=== PATIENT | female | born 1975 | race Caucasian/White ===

== ENCOUNTER 2025-01-04 15:44 | Observation (INO) | payer MEDICARE, MEDICAID, SELFPAY ==
[2025-01-04 15:51] VITALS: BP 132/81; PULSE 93; RESP 22; TEMP 36.5; O2SAT 97; BMI 51.3
--- NOTE | 2025-01-04 16:06 | CT_ITS ---
WS: [id number] CT HEAD NONCONTRAST HISTORY: Symptoms of acute stroke TECHNIQUE: Contiguous axial imaging performed through the brain. Bone and soft tissue windows. Sagittal and coronal reformats reviewed. All CT scans at [facility] use at least one of these dose optimization techniques: automated exposure control; mA and/or kV adjustment per patient size (includes targeted exams where dose is matched to clinical indication); or iterative reconstruction. DLP: 1115.17 mGy COMPARISON: 08/30/2014 No acute intracranial hemorrhage, midline shift or mass effect. No significant atrophy. Subtle areas of decreased attenuation in the occipital lobes bilaterally. No large territory infarct. Ventricles: Normal size with no hydrocephalus. No inferior displacement of the cerebellar tonsils. Paranasal sinuses: As visualized are clear. Mastoid air cells: Well pneumatized. Calvarium and scalp: Skull is intact with no soft tissue edema or swelling. CT/CT head thrombolytic [id number] IMPRESSION: 1. No acute intracranial hemorrhage or edema. 2. Subtle areas of decreased attenuation in the occipital lobes. This may be a rtifact related to patient motion. Less likely early ischemic changes. Patient' s blood pressure is normal therefore not likely PRES. Notified Shirley Bishop MD at 01/04/2025 4:23 PM.
--- NOTE | 2025-01-04 16:18 | PC.NURSE ---
Patient taken to ER Room and Dr Hdez Consulted. Stroke alert called and assisted TRAIN CONTROL ELECTRONIC TECHNICIAN to imaging.
--- NOTE | 2025-01-04 16:21 | ECG_ITS ---
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 Measurements Intervals [place] Rate: 86 P: 27 TX: 165 QRS: -26 QRSD: 145 T: 0 QT: 396 QTc: 475 Interpretive Statements SINUS RHYTHM BORDERLINE LEFT AXIS DEVIATION [QRS AXIS < -20] RIGHT BUNDLE BRANCH BLOCK [120+ ms QRS DURATION, UPRIGHT V1, 40+ ms S IN I/aVL/V4/V5/V6] MINIMAL VOLTAGE CRITERIA FOR LVH, CONSIDER NORMAL VARIANT [MEETS CRITERIA IN ONE OF: R(aVL), S(V1), R(V5), R(V5/V6)+S(V1)] No previous ECG available for comparison Electronically Signed On 01-08-2025 18:11:04 DOCUMENT CLERK by Dexter Navarrete M.D. [email or web address] [id number]
[2025-01-04 16:28] LABS: Basophils % 0.3 %; Eosinophils # 0.2 10^3/uL (0.0-0.8); Eosinophils % 1.9 %; Hematocrit 38.5 % (36-47); Lymphocytes # 1.6 10^3/uL (0.8-4.8); Lymphocytes % 20.4 %; Mean Corpuscular HGB Conc 34.8 g/dL (30-55); Mean Corpuscular Hemoglobin 30.7 pg (27-33); Mean Corpuscular Volume 88.3 fl (85-98); Monocytes # 0.6 10^3/uL (0.2-0.9); Monocytes % 7.4 %; Neutrophils # 5.56 10^3/uL (1.8-7.7); Neutrophils % 69.6 %; Nucleated Red Blood Cells % 0 %; Platelet Count 259 10^3/cmm (157-399); Red Blood Count 4.36 10^6/uL (3.85-5.65); White Blood Count 7.98 10^3/uL (3.29-11.43)
--- NOTE | 2025-01-04 16:31 | W.ED.WEAKNES ---
HPI - Weakness General: Chief complaint: Weakness Stated complaint: head pain, not feeling irght, right sided pain? Time Seen by Provider: 01/04/25 16:04 Source: patient Mode of arrival: ambulatory Limitations: no limitations History of Present Illness: 49-year-old female who is here with multiple complaints. Patient states that she was in an argument with her boyfriend 3 to 4 hours states she got very upset started having headache states she started having right sided weakness and slurred speech. She does have a history of bipolar schizophrenia states she had a positive meth test 3 weeks ago she states she also is 4 months . She has had a history of stroke in the past. Patient has pressured speech and is extremely anxious here she is moving all extremities has no slurred speech. Associated symptoms: Reports headache(s); Denies chest pain, chills, fever(s), nausea or vomiting Review of Systems Const: Denies: fever(s) or chills Eyes: Denies: blurry vision or eye discomfort ENMT: Denies: throat pain or dental pain Card: Denies: chest pain Resp: Denies: dyspnea GI: Denies: abdominal pain, nausea, vomiting or diarrhea Musc: Denies: neck pain or back pain Skin/Breast: Denies: rash Neuro: Reports: headache(s) Psych: Reports: anxiety Physical Exam Const: COMMON NORMALS: patient oriented x3 GENERAL APPEARANCE: anxious HENMT: COMMON NORMALS: normocephalic and atraumatic HEAD & SCALP: normocephalic and atraumatic Eye: COMMON NORMALS: Equal, round and reactive pupils present and EOMs intact bilaterally PUPIL: Yes Equal, round and reactive pupils present Neck/C-Spine: COMMON NORMALS: full ROM and supple Chest: COMMONS NORMALS: normal inspection of the chest Resp: COMMON NORMALS: normal respiratory effort, No retractions, No use of accessory muscles and clear to auscultation bilaterally AUSCULTATION: clear to auscultation bilaterally Cardio: COMMON NORMALS: regular rate, regular rhythm and No murmurs present (Cardio) RATE: regular rate RHYTHM: regular rhythm GI: COMMON NORMALS: Normal to inspection, nondistended, normoactive bowel sounds present, Soft to palpation, non-tender and no masses PALPATION: Yes Soft to palpation Extremity: COMMON NORMALS: normal to inspection and full ROM Neuro: COMMON NORMALS: patient oriented x3, moves all extremities and no focal motor deficits SPEECH: speech normal MOTOR EXAM: 5/5 motor strength present throughout Psych: COMMON NORMALS: mental status grossly normal, Normal thought process present and cooperative THOUGHT PROCESS: Normal thought process present Skin: COMMON NORMALS: no rashes or lesions noted and no wounds GENERAL SKIN EXAM: no rashes or lesions noted Course Vital Signs: Vital signs: Vital Signs Temperature 97.7 F 01/04/25 15:51 Pulse Rate 92 01/04/25 16:46 Respiratory Rate 22 H 01/04/25 15:51 Blood Pressure 141/94 01/04/25 16:46 Pulse Oximetry 93 01/04/25 16:46 Oxygen Delivery Me thod Room Air 01/04/25 16:46 MDM - Weakness Medical Decision Making Patient presents here concerns of possible stroke. I agree NIH 0 she had some intermittent slurred speech but does have tardive dyskinesia could possibly a TIA or an anxiety reaction CT and some nonspecific findings could be motion artifact neurologist recommended admission for MRI will admit for observation. Patient is not a TNKase candidate as she has a low NIH and is unsure exactly when this it started Medical Records I reviewed the patient's medical records. Lab Data I reviewed the patient's lab results. 01/04/25 13:20 01/04/25 13:[address] 01/04/25 16:06 IMPRESSION: 1. No acute intracranial hemorrhage or edema. 2. Subtle areas of decreased attenuation in the occipital lobes. This may be artifact related to patient motion. Less likely early ischemic changes. Patient's blood pressure is normal therefore not likely PRES. Notified Shirley Bishop MD at 01/04/2025 4:23 PM. Laboratory Results WBC 7.98 10^3/uL (3.29-11.43) 01/04/25 13:20 RBC 4.36 10^6/uL (3.85-5.65) 01/04/25 13:20 Hgb 13.40 g/dL (11.27-16.99) 01/04/25 13:20 Hct 38.5 % (36-47) 01/04/25 13:20 MCV 88.3 fl (85-98) 01/04/25 13:20 MCH 30.7 pg (27-33) 01/04/25 13:20 MCHC 34.8 g/dL (30-55) 01/04/25 13:20 RDW 13.0 % (12.1-15.1) 01/04/25 13:20 Plt Count 259 10^3/cmm (157-399) 01/04/25 13:20 MPV 10.0 fL (7.4-10.4) 01/04/25 13:20 Neut % (Auto) 69.6 % 01/04/25 13:20 Lymph % (Auto) 20.4 % 01/04/25 13:20 [place] % (Auto) 7.4 % 01/04/25 13:20 Eos % (Auto) 1.9 % 01/04/25 13:20 Baso % (Auto) 0.3 % 01/04/25 13:20 Neut # (Auto) 5.56 10^3/uL (1.8-7.7) 01/04/25 13:20 Lymph # (Auto) 1.6 10^3/uL (0.8-4.8) 01/04/25 13:20 [place] # (Auto) 0.6 10^3/uL (0.2-0.9) 01/04/25 13:20 Eos # (Auto) 0.2 10^3/uL (0.0-0.8) 01/04/25 13:20 Baso # (Auto) 0.0 10^3/uL (0.0-0.1) 01/04/25 13:20 Nucleated RBC % (auto) 0 % 01/04/25 13:20 Nucleated RBCs # 0.0 /100WBC 01/04/25 13:20 PT 12.20 SECONDS (12.1-14.9) 01/04/25 13:20 INR 0.85 (0.8-1.2) 01/04/25 13:20 APTT 24.1 SECONDS (23.9-36.7) 01/04/25 13:20 Sodium 136 mmol/L (136-145) 01/04/25 13:20 Potassium 3.8 mmol/L (3.5-5.1) 01/04/25 13:20 Chloride 100 mmol/L (98-107) 01/04/25 13:20 Carbon Dioxide 25 mmol/L (22-29) 01/04/25 13:20 Anion Gap 14.8 (5-19) 01/04/25 13:20 BUN 23 mg/dL (6-20) H 01/04/25 13:20 Creatinine 0.7 mg/dL (0.5-0.9) 01/04/25 13:20 GFR Calculation 89.7 mL/min (90-130) L 01/04/25 13:20 Glucose 312 mg/dL (65-115) H 01/04/25 13:20 Calculated Osmolality 298 mOsm/kg (285-295) H 01/04/25 13:20 Calcium 9.4 mg/dL (8.5-10.5) 01/04/25 13:20 Total Bilirubin 0.4 mg/dL (0.15-1.2) 01/04/25 13:20 AST 9 U/L (0-32) 01/04/25 13:20 ALT 12 U/L (0-33) 01/04/25 13:20 Alkaline Phosphatase 97 U/L (35-105) 01/04/25 13:20 Total Protein 6.8 g/dL (6.6-8.7) 01/04/25 13:20 Albumin 3.7 g/dL (3.5-5.2) 01/04/25 13:20 Globulin 3.1 g/dL (1.3-4.6) 01/04/25 13:20 Ser , Semi-Qnt < 1.00 mIU/mL 01/04/25 13:20 All radiology interpretation(s) finalized by discharge EKG Data EKG 1: I personally reviewed and interpreted this EKG as follows: EKG interpretation date: 01/04/25 EKG interpretation time: 16:21 Interpretation: nsr hr [address] elevation qrs 145 qtc 439 Discharge Plan Discharge Patient Disposition: Admitted As Inpatient Clinical Impression: CVA (cerebral vascular accident) Condition: Stable Prescriptions: No Action benztropine 0.5 mg tablet 0.5 mg PO BID carvedilol 12.5 mg tablet 12.5 mg PO BID clarithromycin 250 mg tablet See Rx Instructions .ROUTE .COMPLEX Rx Instructions: TAKE TWO TABLETS BY MOUTH TWICE A DAY IN THE MORNING & BEDTIME FOR 10 DAYS tizanidine 4 mg tablet 4 mg PO TID PRN (Reason: Muscle Spasm) levetiracetam 500 mg tablet 500 mg PO BID gabapentin 400 mg capsule 400 mg PO TID hydroxyzine pamoate 50 mg capsule 50 mg PO Q8H PRN (Reason: Anxiety) quetiapine 100 mg tablet 100 mg PO BEDTIME lamotrigine 25 mg tablet 25 mg PO QAM buspirone 10 mg tablet 10 mg PO BID omeprazole 20 mg capsule,delayed release(DR/EC) 40 mg PO QAM metformin 500 mg tablet extended release 24 hr 500 mg PO BID prazosin 2 mg capsule 2 mg PO BEDTIME insulin lispro [Humalog KwikPen Insulin] 100 unit/mL insulin pen See Rx Instructions .ROUTE .COMPLEX Rx Instructions: INJECT 28 UNITS UNDER THE SKIN THREE TIMES A DAY, BEFORE EACH MEAL duloxetine 30 mg capsule,delayed release(DR/EC) 60 mg PO BEDTIME insulin glargine [Lantus Solostar U-100 Insulin] 100 unit/mL (3 mL) insulin pen 40 unit SUBCUT QAM oxycodone 10 mg tablet 10 mg PO Q8H PRN (Reason: Pain) buprenorphine-naloxone 8-2 mg film 1 film buccal BID insulin glargine-yfgn 100 unit/mL (3 mL) insulin pen 40 unit SUBCUT BEDTIME meloxicam 7.5 mg tablet 7.5 mg PO QAM Print Language: Mohawk Coding Level of Care Code ED Registered Massage Therapist for Chg Fwd Related Data Home Medications ?Medication ?Instructions ?Recorded ?Confirmed benztropine 0.5 mg tablet 0.5 mg PO BID 01/04/25 01/04/25 buprenorphine 8 mg-naloxone 2 mg 1 film buccal BID 01/04/25 01/04/25 sublingual film buspirone 10 mg tablet 10 mg PO BID 01/04/25 01/04/25 carvedilol 12.5 mg tablet 12.5 mg PO BID 01/04/25 01/04/25 clarithromycin 250 mg tablet See Rx Instructions .Route .COMPLEX 01/04/25 01/04/25 duloxetine 30 mg capsule,delayed 60 mg PO BEDTIME 01/04/25 01/04/25 release gabapentin 400 mg capsule 400 mg PO TID 01/04/25 01/04/25 hydroxyzine pamoate 50 mg capsule 50 mg PO Q8H PRN Anxiety 01/04/25 01/04/25 insulin glargine 100 unit/mL (3 40 unit SUBCUT QAM 01/04/25 01/04/25 mL) subcutaneous pen (Lantus Solostar U-100 Insulin) insulin glargine-yfgn 100 unit/mL 40 unit SUBCUT BEDTIME 01/04/25 01/04/25 (3 mL) subcutaneous pen insulin lispro 100 unit/mL See Rx Instructions .Route .COMPLEX 01/04/25 01/04/25 subcutaneous pen (Humalog KwikPen (U-100) Insulin) lamotrigine 25 mg tablet 25 mg PO QAM 01/04/25 01/04/25 levetiracetam 500 mg tablet 500 mg PO BID 01/04/25 01/04/25 meloxicam 7.5 mg tablet 7.5 mg PO QAM 01/04/25 01/04/25 metformin 500 mg tablet,extended 500 mg PO BID 01/04/25 01/04/25 release 24 hr omeprazole 20 mg capsule,delayed 40 mg PO QAM 01/04/25 01/04/25 release oxycodone 10 mg tablet 10 mg PO Q8H PRN Pain 01/04/25 01/04/25 prazosin 2 mg capsule 2 mg PO BEDTIME 01/04/25 01/04/25 quetiapine 100 mg tablet 100 mg PO BEDTIME 01/04/25 01/04/25 tizanidine 4 mg tablet 4 mg PO TID PRN Muscle Spasm 01/04/25 01/04/25 Allergies Allergy/AdvReac Type Severity Reaction Status Date / Time acetaminophen (From Tylenol) Allergy Unknown Verified 01/04/25 16:01 adhesive tape Allergy Unknown Verified 01/04/25 16:01 ceftriaxone (From Rocephin) Allergy Unknown Verified 01/04/25 16:01 codeine Allergy Unknown Verified 01/04/25 16:01 ketorolac (From Toradol) Allergy Unknown Verified 01/04/25 16:01 Sulfa (Sulfonamide Allergy Unknown Verified 01/04/25 16:01 Antibiotics) sulfamethoxazole (From Allergy Unknown Verified 01/04/25 16:01 Bactrim) trimethoprim (From Bactrim) Allergy Unknown Verified 01/04/25 16:01 NIH stroke score NIHSS Level Of Consciousness - 1a: 0 Level Of Consciousness Questions - 1b: Both Correct Level Of Consciousness Commands - 1c: Both Correct Best Gaze - 2: Normal Visual Sidhu - 3: No Visual Loss Facial Palsy - 4: Normal Motor Arm Right - 5: No Drift Motor Arm Left - 5: No Drift Motor Leg Right - 6: No Drift Motor Leg Left - 6: No Drift Limb Ataxia - 7: Absent Sensory - 8: Normal Best Language - 9: No Aphasia Dysarthia - 10: Normal Extinction And Inattention - 11: 0 Score Total Score: 0
--- NOTE | 2025-01-04 16:37 | P.CONIM_ITS ---
Providers/Reason For Consult 2 Consulting Physician/Specialty*: Salvatore Mcgraw MD neurology and epilepsy Reason for Consult*: Acute care/code stroke emergency department room #1 History of Present Illness History of Present Illness Johanny Rincon is a 49 year old female with a history of methamphetamine use. Patient reports she stopped approximately 2 or 3 years ago but had a positive meth screen 3 weeks prior to this emergency room evaluation. The patient also has a history of psychiatric disorders manifested as bipolar disorder and schizophrenia and treated with quetiapine and reported history of seizures treated with Keppra. The patient stated that she is currently 4 months . The patient stated that she is followed at a [facility] school special education [facility] facility. The patient stated that she was having an argument with her boyfriend approximately 3 or 4 hours prior to the close stroke being initiated at 4:07 PM on 01/04/2025. The patient stated that she and suddenly had right-sided pain involving her face arm and leg and headaches associated with slurred speech. Upon evaluation in the emergency department the patient was anxious and was moving all extremities with no obvious facial weakness or extremity weakness and her speech appeared to be baseline for her. Patient does have some tardive dyskinesia involving her mouth and tongue's and arm. The patient is on neuroleptics. NIH score = 0 Glucose Accu-Chek [address] 01/04/2025 Impression: 1. No acute intracranial hemorrhage or edema. 2. Subtle areas of decreased attenuation in the occipital lobes. This may be artifact related to patient motion. Less likely early ischemic changes. Patient's blood pressure is normal therefore not likely PRES. Drug allergies: Tylenol, adhesive tape, Rocephin, codeine, Toradol, sulfonamide antibiotics, Bactrim type reactions unknown Current medications: Seroquel Cymbalta Keppra 500 mg p.o. twice daily Buprenorphine Note: (The patient reports she is on other medications not listed) Past medical history: Schizophrenia Bipolar disorder Obesity Methamphetamine use 4 months gestational (patient reports being high risk ) Type 2 diabetes mellitus History of seizure disorder History of miscarriage Habits: The patient reports a history of marijuana use and methamphetamine use but stated that she quit using methamphetamines 2 to 3 years ago although drug screen approximately 3 weeks prior to this emergency room visit was reported to be positive for methamphetamine. Last menstrual period: The patient reports she is 4 months and followed by a high school special education teacher/GYN facility. She reports history of a miscarriage Family history: Remarkable for brain cancer, stomach cancer, heart disease, bipolar disorder, diabetes and hypertension Review of Systems 2 General: Reports: 10 or more systems reviewed and unremarkable except in HPI and below Medications/Allergies Allergies Allergy/AdvReac Type Severity Reaction Status Date / Time acetaminophen (From Tylenol) Allergy Unknown Verified 01/04/25 16:01 adhesive tape Allergy Unknown Verified 01/04/25 16:01 ceftriaxone (From Rocephin) Allergy Unknown Verified 01/04/25 16:01 codeine Allergy Unknown Verified 01/04/25 16:01 ketorolac (From Toradol) Allergy Unknown Verified 01/04/25 16:01 Sulfa (Sulfonamide Allergy Unknown Verified 01/04/25 16:01 Antibiotics) sulfamethoxazole (From Allergy Unknown Verified 01/04/25 16:01 Bactrim) trimethoprim (From Bactrim) Allergy Unknown Verified 01/04/25 16:01 Vitals/I&O/Wt Last Vital Signs Temp 97.7 F 01/04/25 15:51 Pulse 93 01/04/25 15:51 Resp 22 H 01/04/25 15:51 BP 132/81 01/04/25 15:51 Pulse Ox 97 01/04/25 15:51 O2 Del Method Room Air 01/04/25 15:51 Weight last 48 hrs Weight 328 lb Physical Exam 2 Narrative: NIH score = 0 Glucose Accu-Chek [address] 01/04/2025 Impression: 1. No acute intracranial hemorrhage or edema. 2. Subtle areas of decreased attenuatio n in the occipital lobes. This may be artifact related to patient motion. Less likely early ischemic changes. Patient's blood pressure is normal therefore not likely PRES. The patient is alert she is oriented to person place and situation. Patient follows commands. Speech is clear the patient does display some tar dive dyskinesia involving her face and mouth and upper extremities. This appears to be baseline for the patient. Pupils 4 mm round reactive to light and accommodation. Extraocular movements intact. Visual weinstein full via confrontation. Motor testing 5/5 bilaterally. Deep tendon reflex revealed plantar responses bilaterally. Sensory examination intact to touch. There was no extinction on double sensory stimulation. Throat clear. Lungs clear. Heart regular rhythm and rate. Extremities were negative for cyanosis. Data 01/04/25 13:20 01/04/25 13:20 A&P Assessment and plan (1) Pain: Impression: 1. Reports of acute onset of right sided pain involving her face arm and leg associated with headache after having an argument with her boyfriend which occurred approximately 3 to 4 hours prior to presenting to the [facility] emergency department. NIH score = 0. Therefore the patient was not a candidate for thrombolytics and no intravenous thrombolytics were administered. 2. Patient reports being 4 months . According to the patient she is followed at a high school special education teacher/GYN facility 3. Abnormal noncontrast head CT 01/04/2025 secondary to Subtle areas of decreased attenuation in the occipital lobes. This may be artifact related to patient motion. Less likely early ischemic changes. Patient's blood pressure is normal therefore not likely PRES. 4. History of methamphetamine use with reports of positive drug screen for methamphetamines 3 weeks prior to this emergency room evaluation 5. History of schizophrenia 6. History of bipolar disorder 7. History of seizure disorder Plan: 1. Recommend obtaining noncontrast head MRI to further assess the findings reported on the noncontrast head CT performed on 01/04/2025 to assess for PRESS as well as acute stroke 2. Agree with obtaining serum and or urine test and serum and or urine drug screen 3. Have patient follow-up with [facility] if patient is indeed 4. Outpatient follow-up with the physician addressing her schizophrenia and bipolar disorder 5. Recommend obtaining trough Keppra level and have patient follow-up with the physician addressing her seizure disorder and Keppra dosing 6. Seizure precautions per state law 7. If noncontrast head MRI does reveal acute stroke follow NIH stroke protocol regarding whether or not patient should be started on a cholesterol-lowering agent and antiplatelet therapy. Speak with [facility] to determine if patient can be on cholesterol-lowering agents and/or antiplatelet therapy during (2) Head ache: PDMP PDMP Reviewed: Not Reviewed Consult Attestations 2 Medical Necessity Statement: The patient was evaluated by neurology for acute care/code stroke manifested as complaints of headaches and right sided pain. Coding Level of Care Code 33176 Diagnoses Pain R52 Head ache R51.9
[2025-01-04 16:46] VITALS: BP 141/94; PULSE 92; O2SAT 93
[2025-01-04] MEDS: metoclopramide 5 mg/mL SDV 2 mL 10 MG IVP (16:46)
[2025-01-04] MEDS: diphenhydrAMINE 50 mg/mL SDV 1mL IVP (16:46)
[2025-01-04 16:47] LABS: INR 0.85 (0.8-1.2)
[2025-01-04 16:48] LABS: Partial Thromboplastin Time 24.1 SECONDS (23.9-36.7)
[2025-01-04 16:51] LABS: HCG Quantitative < 1.00 mIU/mL
[2025-01-04 17:06] LABS: Alanine Aminotransferase 12 U/L (0-33); Albumin Level 3.7 g/dL (3.5-5.2); Alkaline Phosphatase 97 U/L (35-105); Anion Gap 14.8 (5-19); Aspartate Amino Transferase 9 U/L (0-32); Blood Urea Nitrogen 23 mg/dL (6-20); Calcium 9.4 mg/dL (8.5-10.5); Carbon Dioxide 25 mmol/L (22-29); Chloride 100 mmol/L (98-107); Creatinine Clr Calc Pharmacy 151.3105; Globulin 3.1 g/dL (1.3-4.6); Glomerular Filtration Rate 89.7 mL/min (90-130); Glucose 312 mg/dL (65-115); Osmolality Calculated 298 mOsm/kg (285-295); Potassium 3.8 mmol/L (3.5-5.1); Sodium 136 mmol/L (136-145); Total Bilirubin 0.4 mg/dL (0.15-1.2); Total Protein 6.8 g/dL (6.6-8.7)
--- NOTE | 2025-01-04 17:12 | XRR_ITS ---
PROCEDURE INFORMATION: Exam: XR Chest Exam date and time: 01/04/2025 5:14 PM Age: 49 years old Clinical indication: Other: Weakness TECHNIQUE: Imaging protocol: Radiologic exam of the chest. Views: 1 view. COMPARISON: No relevant prior studies available. FINDINGS: Tubes, catheters and devices: None. Lungs: Lung volumes are decreased. Mild bilateral perihilar and basilar interstitial lung opacities, suggesting pulmonary edema versus infiltrates. No consolidation. The bilateral lung apices appear clear. Pleural spaces: No pleural effusion. No pneumothorax. Heart/Mediastinum: Cardiac silhouette appears hbnz-nv-bkmrdzveyk enlarged. Bones/joints: Generalized bony degenerative changes. Soft tissues: This study is limited by patient's body habitus. XR/XR chest 1V portable [id number] IMPRESSION: 1. Arrd-xv-afqshvapqx enlarged cardiac silhouette. 2. Mild interstitial pulmonary edema versus infiltrates.
[2025-01-04] MEDS: aspirin 81 mg Chew Tablet 324 MG PO (17:29)
--- NOTE | 2025-01-04 17:45 | USR_ITS ---
PROCEDURE INFORMATION: Exam: US , Limited Exam date and time: 01/04/2025 5:59 PM Age: 49 years old Clinical indication: Other: PT states shes ; Additional info: PT reports being . The date of last menstrual period is 08/16/2024. Negative HCG level. LABS AND CLINICAL REPORTS: Last menstrual period start date: 08/16/2024 Estimated due date (Established): 05/23/2025 TECHNIQUE: Imaging protocol: Real-time ultrasound of the maternal uterus with image documentation. Exam focused on the clinical indication. COMPARISON: No relevant prior studies available. FINDINGS: Gestation: No intrauterine gestation sac identified. Placenta: Not applicable Amniotic fluid (Qualitative): Not applicable. MATERNAL: Uterus: Grossly unremarkable. Uterine length measurement: 6.6 cm length. Cervix: Not visualized. Bowel: Limited study with prominent bowel gas obscuring visualization. Intraperitoneal space: No free intraperitoneal fluid identified. Other findings: The ovaries are not visualized. US/US OB limited [id number] IMPRESSION: 1. No visible . History of negative HCG level was provided. 2. Limited study.
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
--- NOTE | 2025-01-04 17:58 | USCV_ITS ---
Johanny Rincon Age: 49 Gender: F : 1975 Exam Date: 01/04/2025 22:41 Ordering Phys: Boston Vaughan MD Technologist: AMANDA Exam Location: [facility] [place] Indication: cva morbid obesity, hx hep-C, DM2, IDDM, HTN, prior CVAs, now right hemiparesis and slurred speech. History of seizures. Remote history of methamphetamine abuse. BP: 141 / 94 HR: 85 Rhythm: Sinus Technical Quality: MEASUREMENTS (Male / Female) Normal Values 2D ECHO LV Diastolic Diameter PLAX 4.3 cm 4.2 - 5.9 / 3.9 - 5.3 cm IVS Diastolic Thickness 1.9 cm 0.6 - 1.0 / 0.6 - 0.9 cm IVS Systolic Thickness 2.3 cm LVPW Diastolic Thickness 1.4 cm 0.6 - 1.0 / 0.6 - 0.9 cm LVPW Systolic Thickness 1.9 cm LVOT Diameter 2.1 cm LV Ejection Fraction 2D Teich 68.4 % LV Ejection Fraction MOD 4C 47.5 % LV Ejection Fraction MOD 2C 72.0 % LV Ejection Fraction 2C AL 73.4 % LA Diameter 3.3 cm Aorta at Sinotubular Diameter 2.6 cm IVC Diameter 1.7 cm M-MODE LA Ao Ratio MM 1.5 AV Cusp Separation MM 1.9 cm DOPPLER AV Peak Velocity 129.0 cm/s LVOT Peak Velocity 119.0 cm/s AV Area Cont Eq vti 3.7 cm squared AV Area Cont Eq pk 3.2 cm squared MV Peak Velocity 87.0 cm/s MV Area PHT 2.9 cm squared Mitral E to A Ratio 0.7 TV Peak E Velocity 74.0 cm/s PV Peak Velocity 130.0 cm/s FINDINGS Left Ventricle Normal left ventricular size, systolic function and wall thickness, with no regional wall motion abnormalities. Left ventricular ejection fraction is estimated at 60 %. Normal diastolic function. Right Ventricle The right ventricle is normal in size and function. Right Atrium The right atrium is normal in size. Left Atrium The left atrium is normal in size. Mitral Valve Structurally normal mitral valve without significant stenosis or prolapse. There is no mitral regurgitation. Aortic Valve Structurally normal aortic valve without significant sclerosis or stenosis. There is no aortic regurgitation. Tricuspid Valve Trace tricuspid valve regurgitation. Pulmonic Valve Mild pulmonary valve regurgitation. Pericardium Normal pericardium without effusion. Aorta Normal ascending aorta dimension. IVC The inferior vena cava appears normal. CONCLUSIONS Normal left ventricular size, systolic function and wall thickness, with no regional wall motion abnormalities. Left ventricular ejection fraction is estimated at 60 %. Normal diastolic function. There is no pericardial effusion. No significant valve abnormalities. Right atrial pressure is around 5 mm of mercury. Lazaro Timmons MD (Electronically Signed) Final Date: 05 January 2025 12:45 S
--- NOTE | 2025-01-04 17:58 | USCV_ITS ---
Mckenzie Johanny Age: 49 Gender: F : 1975 Exam Date: 01/04/2025 22:10 Ordering Phys: Boston Vaughan MD Technologist: AMANDA Exam Location: [facility] [place] Indication: cva Risk Factors: cva Previous Vascular Surgery: unknown Right Brachial BP: 141 / 94 Left Brachial BP: / Right Left Velocity (cm/s) Spectral Plaque Velocity (cm/s) Spectral Plaque Syst/Diast Broadening Syst/Diast Broadening 133.80/21.40 Min None Prox CCA 173.90/ 19.40 Min None 121.80/25.90 Min None Mid CCA 121.70/ 15.20 Min None 139.20/23.70 Min Homo Distal CCA 111.30/ 23.60 None Homo 101.50/20.90 Min Homo Prox ICA 153.50/ 22.20 Min Homo 87.00/ 33.40 Min None Mid ICA 122.60/ 37.60 Min None 97.70/ 33.40 Min None Distal ICA 96.90 / 27.30 Min None 199.50 Min Homo ECA 138.10 Min Homo 0.70 ICA/CCA 1.40 Antegrade Vertebral Antegrade 27.00/ 7.70 cm/s 49.30/ 17.60 cm/s Tri Subclavian Tri 174.9 176.4 0 0 FINDINGS Comparison: none available. No significant elevation of systolic or diastolic velocities. Waveforms are normal. Minimal bilateral, intimal thickening with no elevation of velocity. CONCLUSIONS Bilateral ICA stenosis less than 50%. Mild carotid atherosclerosis. Dr. Terri Robbins DO (Electronically Signed) Final Date: 05 January 2025 08:55 S
[2025-01-04 18:32] VITALS: BMI 55.2
[2025-01-04 18:33] VITALS: BP 141/94; PULSE 73; O2SAT 95
[2025-01-04] MEDS: levETIRAcetam 500 mg Tablet PO (18:42)
[2025-01-04] MEDS: BuSPIRONE 10 mg Tablet PO (18:43)
[2025-01-04] MEDS: sodium chloride 0.9% 1,000 ML 50 ML IV (18:43)
[2025-01-04 19:07] LABS: Thyroid Stimulating Hormone 1.66 uIU/mL (0.27-4.20)
[2025-01-04 19:16] LABS: HIV 1 & 2 Antibody Non-Reactive (Non-Reactiv); HIV 1 & 2 Antigen Non-Reactive (Non-Reactiv)
[2025-01-04 20:00] VITALS: BP 159/91; PULSE 70; RESP 18; TEMP 36.8; O2SAT 96
[2025-01-04] MEDS: gabapentin 400 mg Capsule PO (20:02)
[2025-01-04] MEDS: duloxetine 30 mg Capsule 60 MG PO (20:02)
[2025-01-04] MEDS: quetiapine 100 mg Tablet PO (20:02)
[2025-01-04] MEDS: prazosin 1 mg Capsule 2 MG PO (20:02)
[2025-01-04 20:55] LABS: Hepatitis A Antibody IgM Non-Reactive (Nonreactive); Hepatitis B Core IgM Non-Reactive (Nonreactive); Hepatitis B Surface Antigen Non-Reactive (Nonreactive); Hepatitis C Virus Antibody Reactive (Nonreactive)
[2025-01-04 22:00] VITALS: PULSE 93
[2025-01-04 23:24] VITALS: BP 93/57; PULSE 87; RESP 16; TEMP 36.6; O2SAT 90
[2025-01-05 03:43] VITALS: BP 146/89; PULSE 89; RESP 17; TEMP 36.5; O2SAT 94
[2025-01-05] MEDS: lamoTRIgine 25 mg Tablet PO (05:58)
[2025-01-05 06:36] LABS: Add Urine Microscopic? NO
[2025-01-05 06:41] LABS: Bilirubin Urine Negative (Negative); Blood Urine Negative (Negative); Glucose Urine UA 3+ (Normal); Ketones Urine Negative (Negative); Leukocyte Esterase Urine Negative (Negative); Nitrate Urine Negative (Negative); Protein Urine Negative (Negative); Urine Appearance Clear (CLEAR); Urine Color Yellow (Yellow); Urobilinogen Urine 0.2 mg/dL (Negative)
[2025-01-05 06:47] LABS: Amphetamines Screen Urine Positive (Negative); Barbiturates Screen Urine Negative (Negative); Benzodiazepines Screen Urine Negative (Negative); Cocaine Screen Urine Negative (Negative); Opiate Screen Urine Negative (Negative); PCP Screen Urine Negative (Negative); THC Screen Urine Negative (Negative)
[2025-01-05 07:09] LABS: Charge for UA Resulting for Rev; Specific Gravity, Urine 1.032 (1.005-1.030)
[2025-01-05 07:52] VITALS: BP 128/79; PULSE 70; RESP 17; TEMP 36.6; O2SAT 95
--- NOTE | 2025-01-05 08:47 | PC.CHAP ---
Pastoral Care Encounter/Spiritual Assessment Type of Contact [] Declined baseball glove shaper visit [] Patient/Family/Request visit [] Outpatient visit [] Follow-up visit [] Physician referral [] Code/Alert [] Routine visit [] Staff referral [] Actively dying [x] Patient sleeping [] Family support [] [] Out of room [] Palliative care [] [] Receiving care in room [] Pre-surgical visit [] Trauma [] Long length of stay [] ICU visit [] Other: Relational/Emotional Strength [] Patient feels connected with others/family/visitors/staff [] Distress [] Loneliness/isolation [] Abandonment Spirituality of Patient [] Person of Kirti [] Attends Voodoo of their Kirti [] Believes in Prayer [] Reads Bible or Quaker materials [] There are Spiritual issues to be addressed [employer] Consultant Interventions [] Prayer [] Active listening [] Non-anxious presence [] Spiritual/emotional support [] Crisis/trauma care [] Spiritual counseling [] Bereavement support [] Provided bereavement packet [] Provided Bible/devotional materials [] Provided toy/stuffed animal, coloring book to patient or family member [] Provided Communion [] Anointing/Alba [] Salvation [] Completed spiritual assessment [] Other: Impact on Illness or Injury [] Angry [] Fearful [] Anxious [] Often cries [] Exhaustion [] Unable to work [] Unable to attend latter day [] Unable to walk/stand [] Unable to read [] Unable to drive [] Unable to eat/drink [] Unable to sleep [] Unable to be with family [] Patient intubated [] Other: Summary Time spent with patient
[2025-01-05 09:11] LABS: Glucose Point of Care 288 mg/dL (70-110)
--- NOTE | 2025-01-05 09:17 | PC.NURSE ---
nursing project coordinator rounds at 0845, gave patient stroke education book, answered all questions regarding possible stroke and prevention in the future, patient complained of pain, I let her primary nurse know.
[2025-01-05] MEDS: benztropine 1 mg Tablet 0.5 MG PO ×2 (09:52→18:46)
[2025-01-05] MEDS: BuSPIRONE 10 mg Tablet PO ×2 (09:52→18:46)
[2025-01-05] MEDS: pantoprazole DR 40 mg Tablet PO (09:52)
[2025-01-05] MEDS: gabapentin 400 mg Capsule PO ×3 (09:52→20:34)
[2025-01-05] MEDS: levETIRAcetam 500 mg Tablet PO ×2 (09:52→18:46)
[2025-01-05] MEDS: insulin lispro 100 unit/1 mL SUBCUT ×3 (09:52→18:46)
[2025-01-05] MEDS: buprenorphine-naloxone 4-1 mg Film 2 EACH SUBLINGUAL ×2 (09:52→18:46)
[2025-01-05] MEDS: LORazepam 2 mg/mL INJ 1 mL 0.5 MG IVP (10:27)
[2025-01-05 11:24] LABS: Glucose Point of Care 222 mg/dL (70-110)
[2025-01-05 11:26] LABS: Basophils % 0.6 %; Eosinophils # 0.1 10^3/uL (0.0-0.8); Eosinophils % 1.8 %; Hematocrit 38.1 % (36-47); Lymphocytes # 1.5 10^3/uL (0.8-4.8); Lymphocytes % 20.6 %; Mean Corpuscular HGB Conc 33.9 g/dL (30-55); Mean Corpuscular Hemoglobin 30.1 pg (27-33); Mean Platelet Volume 10.6 fL (7.4-10.4); Monocytes # 0.5 10^3/uL (0.2-0.9); Monocytes % 7.1 %; Neutrophils # 4.97 10^3/uL (1.8-7.7); Neutrophils % 69.5 %; Nucleated Red Blood Cells % 0 %; Platelet Count 208 10^3/cmm (157-399); Red Blood Count 4.28 10^6/uL (3.85-5.65); Red Cell Distribution Width 12.9 % (12.1-15.1); White Blood Count 7.15 10^3/uL (3.29-11.43)
[2025-01-05 11:39] LABS: Alanine Aminotransferase 10 U/L (0-33); Albumin Level 3.4 g/dL (3.5-5.2); Alkaline Phosphatase 88 U/L (35-105); Anion Gap 13.2 (5-19); Aspartate Amino Transferase 9 U/L (0-32); Blood Urea Nitrogen 18 mg/dL (6-20); Calcium 8.9 mg/dL (8.5-10.5); Carbon Dioxide 26 mmol/L (22-29); Chloride 103 mmol/L (98-107); Creatinine Clr Calc Pharmacy 158.8805; Glomerular Filtration Rate 89.7 mL/min (90-130); Glucose 229 mg/dL (65-115); Osmolality Calculated 295 mOsm/kg (285-295); Potassium 4.2 mmol/L (3.5-5.1); Sodium 138 mmol/L (136-145); Total Bilirubin 0.3 mg/dL (0.15-1.2); Total Protein 6.4 g/dL (6.6-8.7)
[2025-01-05 11:49] LABS: NT Pro B Type Natriuretic Pept 130 pg/mL (0-125)
[2025-01-05 11:52] LABS: Estmated Average Glucose 212; Slide Review Slide Review Perform
[2025-01-05 12:10] VITALS: BP 168/97; PULSE 74; RESP 16; TEMP 36.5; O2SAT 94
[2025-01-05] MEDS: insulin glargine 100 units/1 mL 20 UNIT SUBCUT (12:25)
[2025-01-05] MEDS: aspirin 81 mg EC Tablet PO (14:22)
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
[2025-01-05 16:14] VITALS: BP 160/90; PULSE 75; RESP 19; TEMP 36.5; O2SAT 92
[2025-01-05 17:08] LABS: Glucose Point of Care 150 mg/dL (70-110)
--- NOTE | 2025-01-05 17:45 | MR_ITS ---
WS: [id number] MRI HEAD WITHOUT CONTRAST TECHNIQUE: Sagittal T1, T2 axial, T2 axial FLAIR, axial and coronal T1 images, axial susceptibility weighted imaging, axial diffusion weighted images, and coronal T2 images were obtained. CLINICAL INFORMATION: cva COMPARISON: None. FINDINGS: Tiny focus of restricted diffusion in the RIGHT thalamus measuring 5 mm compatible with acute focus of ischemia. No other foci of restricted diffusion. Normal posterior fossa. Normal vascular flow voids at the skull base. No extra- axial fluid collections. No evidence of mass or mass effect. Paranasal sinuses and mastoid air cells are well aerated. Normal posterior nasopharynx. No hemosiderin on the susceptibly weighted images. Normal optic chiasm and pituitary infundibulum. Temporal lobes hippocampal formations are normal in appearance. No other suspicious findings. MR/MR head wo con* [id number] IMPRESSION: 1. Tiny focus of restricted diffusion in the RIGHT thalamus compatible with ti ny acute lacunar infarct. 2. Minimal patchy supratentorial white matter changes nonspecific in a patient this age but can be seen with hypertension, diabetes, and migraine headaches. 3. No other acute findings. Notified Boston Vaughan MD at 01/05/2025 100pm
[2025-01-05] MEDS: enoxaparin 40 mg/0.4 mL Syringe SUBCUT (18:46)
[2025-01-05 19:29] VITALS: BP 154/99; PULSE 67; RESP 18; TEMP 36.9; O2SAT 95
[2025-01-05] MEDS: atorvastatin 40 mg Tablet PO (20:34)
[2025-01-05] MEDS: duloxetine 30 mg Capsule 60 MG PO (20:34)
[2025-01-05] MEDS: quetiapine 100 mg Tablet PO (20:34)
[2025-01-05] MEDS: prazosin 1 mg Capsule 2 MG PO (20:34)
[2025-01-05 20:47] LABS: Glucose Point of Care 260 mg/dL (70-110)
[2025-01-06] VITALS: BP 145/85; PULSE 69; RESP 16; TEMP 36.3; O2SAT 94
[2025-01-06 03:46] VITALS: BP 128/83; PULSE 70; RESP 19; TEMP 36.4; O2SAT 96
[2025-01-06] MEDS: lamoTRIgine 25 mg Tablet PO (05:30)
[2025-01-06 06:34] LABS: Glucose Point of Care 262 mg/dL (70-110)
[2025-01-06 07:40] VITALS: BP 142/90; PULSE 62; RESP 16; TEMP 36.5; O2SAT 91
[2025-01-06 07:54] LABS: Basophils % 0.4 %; Eosinophils # 0.1 10^3/uL (0.0-0.8); Eosinophils % 1.8 %; Hematocrit 36.5 % (36-47); Lymphocytes # 2.1 10^3/uL (0.8-4.8); Lymphocytes % 26.7 %; Mean Corpuscular HGB Conc 32.6 g/dL (30-55); Mean Corpuscular Hemoglobin 30.7 pg (27-33); Mean Corpuscular Volume 94.1 fl (85-98); Mean Platelet Volume 10.2 fL (7.4-10.4); Monocytes # 0.5 10^3/uL (0.2-0.9); Monocytes % 6.6 %; Neutrophils # 5.06 10^3/uL (1.8-7.7); Neutrophils % 64.2 %; Nucleated Red Blood Cells % 0 %; Platelet Count 203 10^3/cmm (157-399); Red Blood Count 3.88 10^6/uL (3.85-5.65); Red Cell Distribution Width 13.2 % (12.1-15.1); White Blood Count 7.87 10^3/uL (3.29-11.43)
[2025-01-06 08:14] LABS: Alanine Aminotransferase 9 U/L (0-33); Albumin Level 3.4 g/dL (3.5-5.2); Alkaline Phosphatase 83 U/L (35-105); Anion Gap 10.8 (5-19); Aspartate Amino Transferase 6 U/L (0-32); Blood Urea Nitrogen 20 mg/dL (6-20); Calcium 8.7 mg/dL (8.5-10.5); Carbon Dioxide 31 mmol/L (22-29); Chloride 100 mmol/L (98-107); Creatinine Clr Calc Pharmacy 187.3858; Globulin 2.4 g/dL (1.3-4.6); Glomerular Filtration Rate 107.2 mL/min (90-130); Glucose 245 mg/dL (65-115); Osmolality Calculated 297 mOsm/kg (285-295); Potassium 3.8 mmol/L (3.5-5.1); Sodium 138 mmol/L (136-145); Total Bilirubin 0.2 mg/dL (0.15-1.2); Total Protein 5.8 g/dL (6.6-8.7)
[2025-01-06] MEDS: insulin glargine 100 units/1 mL 20 UNIT SUBCUT (08:55)
[2025-01-06] MEDS: pantoprazole DR 40 mg Tablet PO (08:55)
[2025-01-06] MEDS: insulin lispro 100 unit/1 mL SUBCUT ×2 (08:55→12:05)
[2025-01-06] MEDS: benztropine 1 mg Tablet 0.5 MG PO (08:55)
[2025-01-06] MEDS: aspirin 81 mg EC Tablet PO (08:55)
[2025-01-06] MEDS: levETIRAcetam 500 mg Tablet PO (08:56)
[2025-01-06] MEDS: gabapentin 400 mg Capsule PO ×2 (08:56→14:29)
[2025-01-06] MEDS: buprenorphine-naloxone 4-1 mg Film 2 EACH SUBLINGUAL (08:56)
[2025-01-06] MEDS: BuSPIRONE 10 mg Tablet PO (08:56)
[2025-01-06 10:41] LABS: Glucose Point of Care 232 mg/dL (70-110)
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
[2025-01-06 11:33] VITALS: BP 163/89; PULSE 78; RESP 16; TEMP 36.5; O2SAT 90
--- NOTE | 2025-01-06 12:52 | PICC.NOTE ---
Referred to vascular access nurse for IV placement due to poor access and no current IV. Left forearm assessed with 20 gauge peripheral IV inserted using US guidance. Flushed without difficulty and good blood return noted. Secured with venaguard and coban. Pt tolerated well. Report given to bedside nurseRian.
[2025-01-06 14:55] VITALS: BP 163/89; PULSE 78; RESP 16; TEMP 36.5; O2SAT 90
--- NOTE | 2025-01-06 15:35 | USCV_ITS ---
Doug Rinconi Age: 49 Gender: F : 1975 Exam Date: 01/06/2025 10:35 Ordering Phys: Boston Vaughan MD Technologist: CT [place]am [place] [facility] [place]ication: BP: / HR: Rhythm: Sinus Technical Quality: Adequate MEASUREMENTS (Male / Female) Normal Values FINDINGS Left Ventricle Right Ventricle Right Atrium Left Atrium Mitral Valve Aortic Valve Tricuspid Valve Pulmonic Valve Pericardium Aorta IVC CONCLUSIONS Limited echocardiogram performed for bubble study LV systolic function is normal with EF of 60-65% Bubble study does not show evidence of intracardiac shunting. Dexter Navarrete MD (Electronically Signed) Final Date: 07 January 2025 14:11 S
[2025-01-07 14:40] LABS: HEP C RNA Viral Load Quant <1.18 NOT DETECTED Log IU/mL (NOT DETECTED); HEP C RNA Viral Load Quant <15 NOT DETECTED IU/mL (NOT DETECTED)
== END 2025-01-06 14:50 | disposition home or self-care (01) ==
LOC: ER 17:57 → MEDSURG 18:43
PROVIDERS: Admitting Provider Family Medicine; Emergency Provider Emergency Medicine; Visit Provider Family Medicine
DX: I63.9 Cerebral infarction, unspecified (principal); R47.81 Slurred speech; I67.9 Cerebrovascular disease, unspecified; G81.91 Hemiplegia, unspecified affecting right dominant side; F20.89 Other schizophrenia; F31.9 Bipolar disorder, unspecified; G40.909 Epilepsy, unspecified, not intractable, without status epilepticus; Z86.19 Personal history of other infectious and parasitic diseases; I10 Essential (primary) hypertension; G24.01 Drug induced subacute dyskinesia; Z87.828 Personal history of other (healed) physical injury and trauma; Z86.73 Personal history of transient ischemic attack (TIA), and cerebral infarction without residual deficits; E11.40 Type 2 diabetes mellitus with diabetic neuropathy, unspecified; F41.9 Anxiety disorder, unspecified; Z79.899 Other long term (current) drug therapy; Z79.4 Long term (current) use of insulin; Z79.84 Long term (current) use of oral hypoglycemic drugs; Z88.8 Allergy status to other drugs, medicaments and biological substances; Z88.5 Allergy status to narcotic agent; Z88.2 Allergy status to sulfonamides
CPT/HCPCS: 36415; 36416; 70450; 70551; 71045; 76815; 80053; 80074; 80306; 81003; 82962; 83036; 83880; 84443; 84702; 85025; 85610; 85730; 87522; 87806; 92523; 92610; 93005; 93306; 93880; 94664; 96372; 96374; 96375; 97116; 97162; 97167; 97530; 99285; C8924; G0378; J0573; J1200; J1650; J1815; J2060; J2765; J7030